=== PATIENT | female | born 1955 | race Hispanic/Latino ===

== ENCOUNTER 2019-06-29 11:41 | Emergency (ER) | payer SELFPAY ==
[~2019-06-29 11:41] MED LIST: Iopamidol-370 76% 500 ML 1 ML ONE
[2019-06-29 12:54] LABS: #Basophils 0.1 thou/uL (0.0-0.2); #Eosinphils 0.2 thou/uL (0.0-0.7); #Lymphocytes 2.5 thou/uL (1.20-3.40); #Monocytes 0.5 thou/uL (0.11-0.59); #Neutrophils 7.9 thou/uL (1.40-6.50); %Basophils 0.9 % (0.0-1.0); %Eosinophils 1.7 % (0.0-10.0); %Lymphocytes 22.4 % (21.0-51.0); %Monocytes 4.4 % (0.0-10.0); %Neutrophils 70.6 % (42.0-75.0); Hemoglobin 15.4 g/dL (12.0-16.0); Mean Corpuscular HGB CONC 34.1 g/dL (32.0-36.0); Mean Corpuscular Hemoglobin 30.7 pg (27.0-31.0); Mean Platelet Volume 9.3 fL (7.4-10.4); Platelet Count 217 thou/uL (130-400); RBC Distribution Width 11.9 % (11.5-14.5); Red Blood Cell (RBC) Count 5.02 mill/uL (4.20-5.40); White Blood Cell (WBC) Count 11.1 thou/uL (4.8-10.8)
[2019-06-29 13:18] LABS: ALT (SGPT) 18 U/L (8-55); AST (SGOT) 21 U/L (5-34); Albumin 4.6 g/dL (3.4-4.8); Alkaline Phosphatase 140 U/L (40-110); Anion Gap 18 mmol/L (10-20); BUN (Urea Nitrogen) 13 mg/dL (9.8-20.1); Bilirubin, Total 0.6 mg/dL (0.2-1.2); Calc. Creatinine Clearance 0 mL/min (70-130); Calcium 9.4 mg/dL (7.8-10.44); Carbon Dioxide 23 mmol/L (23-31); Chloride 101 mmol/L (98-107); Estimated GFR-MDRD 70; Globulin 3.9 g/dL (2.4-3.5); Glucose 133 mg/dL (80-115); Lipase 18 U/L (8-78); Protein, Total 8.5 g/dL (6.0-8.3); Sodium 138 mmol/L (136-145)
[2019-06-29] MEDS ORDERED: Morphine 4 MG/ML VIAL ONE ×2 (13:22→15:45)
[2019-06-29] MEDS ORDERED: Ondansetron PF 4 MG/2 ML Vial ONE (13:23)
--- NOTE | 2019-06-29 14:05 | CT ---
CT Abdomen Pelvis W Con: 06/29/2019 12:35 PM CLINICAL INFORMATION: Right lower quadrant abdominal pain COMPARISON: None. TECHNIQUE: Multiple contiguous axial images were obtained and a CT of the abdomen and pelvis with IV contrast. C oronal and sagittal reformats were performed. FINDINGS: Lower Chest: within normal limits. Abdomen: Liver: within normal limits. Bile Ducts: Normal caliber. Gallbladder: No calcified gallstones. Normal caliber wall. Pancreas: within normal limits. Spleen: within normal limits. Adrenals: within normal limits. Kidneys: Bilateral nonobstructing calcifications measuring up to 8 mm in size. Moderate right hydrone phrosis. Fluid is seen adjacent to the right kidney and right renal pelvis. No delay in the right nephrogram. Pelvis: Reproductive Organs: Calcified fibroid in the posterior uterus. Ureters: Mild right hydroureter. There is a 3 mm calcification at the right ureterovesical junction. Bladder: within normal limits. Peritoneum: No ascites or free air, no fluid collection. Bowel: Normal caliber. Normal appendix. Mesentery and Retroperitoneum: No enlarged mesenteric or retroperitoneal lymph nodes. Vessels: Normal. Abdominal Wall: within normal limits. Bones: Degenerative changes in the spine. IMPRESSION: 1. Right ureterovesical junction calcification with mild right hydronephrosis 2. Bilateral nonobstructing renal calcifications 3. There is fluid adjacent to the right kidney which may represent edema. Extravasation of urine in t his location is also a possibility. 4. Fibroid uterus
[2019-06-29] MEDS ORDERED: Ketorolac Tromethamine 30 MG/ML VIAL ONE (14:54)
[2019-06-29 15:55] LABS: Bilirubin Negative (Negative); Blood, Urine Negative (Negative); Clarity Clear (Clear); Glucose, Urine (Dipstick) Normal (Negative); Leukocyte Negative Leu/uL (Negative); Nitrite Negative (Negative); Protein, Urine (Dipstick) Negative (Neg-Trace); Urobilinogen Normal mg/dL (Less than 2)
== END 2019-06-29 17:25 | disposition home or self-care (01) ==
LOC: ERS 11:41
DX: N13.2 Hydronephrosis with renal and ureteral calculous obstruction (principal)
CPT/HCPCS: 74177; 80053; 81003; 83690; 85025; 96361; 96374; 96375; 96376; J1885; J2270; J2405; Q9967